=== PATIENT | male | born 1995 | race African-American/Black ===

== ENCOUNTER 2019-04-28 19:00 | Emergency (ER) | payer BC ==
[~2019-04-28] VITALS: Ht 177.8 cm; Wt 125.0 kg
[2019-04-28] MEDS ORDERED: METO-396 PO (19:13)
[2019-04-28] MEDS ORDERED: ONDANSETRON HCL 4MG/2ML INJ IV STA (19:53)
[2019-04-28] MEDS ORDERED: MORPHINE SULFATE 4 MG/ML CPJ (NOT FOR IM USE) IV STA (19:53)
[2019-04-28] MEDS ORDERED: SODIUM CHLORIDE 0.9% 1,000 ML IV ONE (19:53)
[2019-04-28] MEDS ORDERED: CEFAZOLIN 1000MG PREMIX 50 ML IV ONE (20:00)
[2019-04-28 20:27] LABS: BASOPHILS % 0.6 % (0.0-2.0); EOSINOPHILS % 1.1 % (0.0-5.0); HEMATOCRIT. 42.4 % (42.0-52.0); HEMOGLOBIN. 14.4 g/dL (14.0-18.0); LYMPHOCYTES % 16.5 % (20.0-50.0); MEAN CORPUSCULAR HEMOGLOBIN 28.2 pg (28.0-32.0); MEAN PLATELET VOLUME 7.7 fl (7.4-10.4); MONOCYTES % 6.4 % (2.0-8.0); NEUTROPHILS % 75.4 % (40.0-76.0); PLATELET 313 x1000/uL (130-400)
[2019-04-28 20:28] LABS: CHLORIDE 109 mEq/L (98-107)
[2019-04-28 20:31] LABS: PARTIAL THROMBOPLASTIN TIME 29.8 sec (23.4-31.0)
[2019-04-28 20:32] LABS: ETHANOL BLOOD < 10 mg/dL
[2019-04-28] MEDS ORDERED: HYDROMORPHONE HCL/PF 2MG/ML CPJ IV ONE (22:00)
[2019-04-28 22:40] LABS: CLARITY URINE CLEAR (CLEAR); COLOR URINE YELLOW (YELLOW); KETONES URINE NEGATIVE (NEGATIVE); LEUKOCYTE ESTERASE URINE NEGATIVE (NEGATIVE); NITRITE URINE NEGATIVE (NEGATIVE); OCCULT BLOOD URINE NEGATIVE (NEGATIVE); PH URINE 5.5 (4.5-8.0); PROTEIN URINE TRACE (NEGATIVE); SPECIFIC GRAVITY URINE 1.022 (1.005-1.030); UROBILINOGEN URINE 0.2 E.U./dL (0.2-1.0)
[2019-04-29] MEDS ORDERED: HYDROMORPHONE HCL/PF 2MG/ML CPJ IV ONE ×2 (00:15→06:15)
[2019-04-29] MEDS ORDERED: FENTANYL CITRATE/PF 50MCG/ML 2ML VIAL IV ONE (03:30)
[2019-04-29] MEDS ORDERED: CEFAZOLIN 1000MG PREMIX 50 ML IV ONE (04:45)
[2019-04-29] MEDS ORDERED: MORPHINE SULFATE 4 MG/ML CPJ (NOT FOR IM USE) IV ONE (08:00)
[2019-04-29 10:25] VITALS: BP 149/82
== END 2019-04-29 12:05 | disposition short-term general hospital (02) ==
LOC: ER 19:00
DX: S82.092B Other fracture of left patella, initial encounter for open fracture type I or II (principal); I10 Essential (primary) hypertension; Z88.0 Allergy status to penicillin; V43.52XA Car driver injured in collision with other type car in traffic accident, initial encounter; Y93.89 Activity, other specified; W22.11XA Striking against or struck by driver side automobile airbag, initial encounter; Y92.488 Other paved roadways as the place of occurrence of the external cause
CPT/HCPCS: 36415; 70486; 71045; 72170; 73562; 73700; 80053; 80320; 81003; 84484; 85025; 85610; 85730; 96365; 96375; 96376; 99285; A4217; J0690; J1170; J2270; J2405; J3010; J7030; Z7610; G0480

== ENCOUNTER 2024-10-07 10:49 | Emergency (ER) | payer BC, MEDICAID ==
[~2024-10-07] VITALS: Ht 188 cm; Wt 123.0 kg
[~2024-10-07 10:49] MED LIST: METO-396 PO
[2024-10-07 10:51] VITALS: O2SAT 100
[2024-10-07] MEDS: LORAZEPAM 2MG/ML UD SYRINGE IM SCH (11:25)
[2024-10-07 12:39] VITALS: BP 126/81; PULSE 92; RESP 18; TEMP 37.2; O2SAT 100
== END 2024-10-07 12:40 | disposition home or self-care (01) ==
LOC: ER 10:49
DX: F41.9 Anxiety disorder, unspecified (principal); I10 Essential (primary) hypertension; Z79.899 Other long term (current) drug therapy; Z88.0 Allergy status to penicillin
CPT/HCPCS: 99284; 93005; 96372; J2060